=== PATIENT | male | born 1945 | race Caucasian/White ===

== ENCOUNTER 2017-05-21 08:32 | Emergency (ER) | payer OTHER ==
[2017-05-21 08:35] VITALS: BMI 27.8
[2017-05-21 08:37] VITALS: BP 124/80; PULSE 61; RESP 18; TEMP 98.5; O2SAT 99
--- NOTE | 2017-05-21 08:50 | C.PDOC ---
History Of Present Illness 71 y/o male presents to ED with complaints of toothache for a few days after biting on something hard. Patient states a few days ago he was eating something hard and ever since then pain developed to right lower tooth and feels loose now. Patient denies fever, chills, active bleeding or any other complaints at this time. Time Seen by Provider: 05/21/17 08:42 Chief Complaint (Nursing): Dental Pain History Per: Patient History/Exam Limitations: no limitations Onset/Duration Of Symptoms: Days Current Symptoms Are (Timing): Still Present Quality: Positive for: "Pain" Past Medical History Reviewed: Historical Data, Nursing Documentation, Vital Signs Vital Signs: Last Vital Signs Temp 98.5 F 05/21/17 08:36 Pulse 61 05/21/17 08:36 Resp 18 05/21/17 08:36 BP 124/80 05/21/17 08:36 Pulse Ox 99 05/21/17 08:59 - Medical History PMH: No Chronic Diseases Surgical History: No Surg Hx Family History: States: No Known Family Hx - Social History Hx Tobacco Use: Yes Hx Alcohol Use: No Hx Substance Use: No - Immunization History Hx Tetanus Toxoid Vaccination: No Hx Influenza Vaccination: No Hx Pneumococcal Vaccination: No Review Of Systems Constitutional: Negative for: Fever, Chills ENT: Positive for: Mouth Pain (tooth pain) Skin: Negative for: Rash Physical Exam - Physical Exam Appears: Well, Non-toxic, No Acute Distress Skin: Warm, Dry, No Rash Head: Atraumatic, Normacephalic Eye(s): bilateral: Normal Inspection, EOMI Nose: Normal Oral Mucosa: Moist Tongue: Normal Appearing, No Swelling Lips: Normal Appearing, No Swelling Teeth: Caries, Dentures, Loose (right lower lateral incisor ), Other (poor dentition, 4 teeth at bottom, right lower lateral incisor loose and tender) Gingiva: Normal Appearing, No Erythema Throat: Normal, No Erythema Neck: Normal ROM, Supple Chest: Symmetrical Cardiovascular: Rhythm Regular, No Murmur Respiratory: Normal Breath Sounds, No Wheezing Extremity: Bilateral: Atraumatic, Normal ROM Neurological/Psych: Oriented x3, Normal Speech Gait: Steady ED Course And Treatment O2 Sat by Pulse Oximetry: 99 (RA) Pulse Ox Interpretation: Normal Medical Decision Making Medical Decision Making: Impression: toothache, loose tooth Dispo: Advise follow up with dentist and analgesics as needed Disposition Counseled Patient/Family Regarding: Diagnosis, Need For Followup, Rx Given - Disposition Disposition: HOME/ ROUTINE Disposition Time: 08:47 Condition: STABLE Additional Instructions: Renetta un seguimiento con el dentista para bhupendra evaluacin ms detallada. [place] los medicamentos segn lo recetado para cualquier dolor o infeccin Regrese al servicio de urgencias en cualquier momento si los sntomas persisten o empeoran. Usted puede llamar al servicio de conserjera para cualquier ayuda [phone]. Prescriptions: Ibuprofen [Motrin] 600 mg PO Q8 #30 tab Penicillin VK [Penicillin VK Tab] 500 mg PO BID #20 tab Instructions: Toothache (ED) Forms: [facility] Print Language: ROMANSH - POA Present On Arrival: None - Clinical Impression Clinical Impression: Loose, teeth, Toothache - Scribe Statement The provider has reviewed the documentation as recorded by the Aleksandaribmario Bruce All medical record entries made by the Scribe were at my direction and personally dictated by me. I have reviewed the chart and agree that the record accurately reflects my personal performance of the history, physical exam, medical decision making, and the department course for this patient. I have also personally directed, reviewed, and agree with the discharge instructions and disposition.
== END 2017-05-21 09:01 | disposition home or self-care (01) ==
LOC: C.ER 08:32
DX: K08.89 Other specified disorders of teeth and supporting structures (principal); Z72.0 Tobacco use

== ENCOUNTER 2017-11-19 09:34 | Emergency (ER) | payer OTHER ==
[2017-11-19 09:35] VITALS: BMI 27.8
[2017-11-19 09:47] VITALS: BP 130/85; PULSE 71; RESP 18; TEMP 97.5; O2SAT 98
[2017-11-19] MEDS ORDERED: Lidocaine 5% Patch TD ONE (10:31)
[2017-11-19] MEDS ORDERED: Lidocaine 5% Patch TD STA (10:32)
--- NOTE | 2017-11-19 10:41 | C.PDOC ---
History Of Present Illness 72 y/o male presents to ED for evaluation of left sided neck stiffness and pain upon waking up this morning. Pt states he did not take any medications because he drank alcohol last night. Denies headache, or fever. Time Seen by Provider: 11/19/17 09:49 Chief Complaint (Nursing): Upper Extremity Problem/Injury History Per: Patient History/Exam Limitations: no limitations Onset/Duration Of Symptoms: Hrs Current Symptoms Are (Timing): Still Present Quality: "Pain" Additional History Per: Patient Past Medical History Reviewed: Historical Data, Nursing Documentation, Vital Signs Vital Signs: Last Vital Signs Temp 97.5 F L 11/19/17 09:42 Pulse 71 11/19/17 09:42 Resp 18 11/19/17 09:42 BP 130/85 11/19/17 09:42 Pulse Ox 98 11/19/17 12:39 Family History: States: Unknown Family Hx - Social History Hx Tobacco Use: Yes Hx Alcohol Use: Yes Hx Substance Use: No - Immunization History Hx Tetanus Toxoid Vaccination: No Hx Influenza Vaccination: No Hx Pneumococcal Vaccination: No Review Of Systems Except As Marked, All Systems Reviewed And Found Negative. Constitutional: Negative for: Fever, Chills ENT: Negative for: Nose Discharge, Nose Congestion, Throat Pain Cardiovascular: Negative for: Chest Pain Respiratory: Negative for: Cough, Shortness of Breath Musculoskeletal: Positive for: Neck Pain Neurological: Negative for: Headache, Dizziness Physical Exam - Physical Exam Appears: Non-toxic, Other (in mild pain) Skin: Normal Color, Warm, Dry Head: Atraumatic, Normacephalic Eye(s): bilateral: Normal Inspection Oral Mucosa: Moist Neck: No Midline Cervical Tenderness, Paracervical Tenderness (left lateral neck tenderness along the trapezius muscle), Supple Cardiovascular: Rhythm Regular, No Murmur Respiratory: Normal Breath Sounds, No Rales, No Rhonchi, No Wheezing Extremity: Normal ROM Neurological/Psych: Oriented x3, Normal Speech, Other (bizarre affect) ED Course And Treatment O2 Sat by Pulse Oximetry: 98 Pulse Ox Interpretation: Normal Progress Note: Pt was given Flexeril, Toradol, and Lidoderm patch. Pt is being discharged home with Rx, and is instructed to follow up with PMD in 1-2 days for further evaluation. Disposition Counseled Patient/Family Regarding: Studies Performed, Diagnosis, Need For Followup, Rx Given - Disposition Referrals: [facility] [Outside] Disposition: HOME/ ROUTINE Disposition Time: 10:40 Condition: STABLE Additional Instructions: SEGUIMIENTO CON GARCIA MDICO EN 1-2 CHRIS USE MEDICAMENTOS SEGN LO INDICADO REGRESE AL IMTIAZ DE EMERGENCIA SI LOS SNTOMAS EMPEORAN Prescriptions: Cyclobenzaprine [Flexeril] 10 mg PO BID PRN #15 tab PRN Reason: Muscle Spasm Lidocaine 5% [Lidoderm] 1 patch TOP DAILY PRN #10 patch PRN Reason: pain Naproxen 375 mg PO BID PRN #20 tablet PRN Reason: pain Instructions: Torticollis, Adult Forms: [employer] (Greenlandic) Print Language: [place] - Clinical Impression Clinical Impression: Torticollis, acute - Scribe Statement The provider has reviewed the documentation as recorded by the Scribe Denisse Gregory All medical record entries made by the Scribe were at my direction and personally dictated by me. I have reviewed the chart and agree that the record accurately reflects my personal performance of the history, physical exam, medical decision making, and the department course for this patient. I have also personally directed, reviewed, and agree with the discharge instructions and disposition.
== END 2017-11-19 10:45 | disposition home or self-care (01) ==
LOC: C.ER 09:34
DX: M43.6 Torticollis (principal)